=== PATIENT | male | born 1945 | race Caucasian/White ===

== ENCOUNTER 2016-07-13 14:51 | Day surgery (SDC) | payer MEDICARE, OTHER ==
[~2016-07-13] VITALS: Ht 180.3 cm; Wt 78.9 kg
[~2016-07-13 14:51] MED LIST: ADV250INH IH; ALBU8.5H2 INHALATION; ASPI-973 PO; CALC-682 PO; CARV3.122 PO; CEPH500C PO; DIGO125T73 PO; DIPH25CA6 PO; FAMO20T PO; FUR20 PO; LISI-610 PO; Lactated Ringer's 1,000 ML IV ONE; MONT10TA23 PO; MULT-1073 PO; NAPR220C11 PO; POTA10CA42 PO; PRE20 PO; SIMV10TA4 PO
[2016-07-13] MEDS ORDERED: Propofol 10,000 mCg/mL 20 mL Inj ONE (14:52)
[2016-07-13 15:26] VITALS: BP 148/82; PULSE 68; RESP 17; O2SAT 99
[2016-07-13] MEDS ORDERED: ADV250INH IH (15:31)
[2016-07-13] MEDS ORDERED: Lactated Ringer's 1,000 ML IV SCH (16:46)
--- NOTE | 2016-07-13 16:46 | PCM.HPANE ---
Patient Data Surgeon Admitting Provider: Attending Provider:Tri Lord MD Primary Care Physician:Fracisco Handley MD Other Provider:Mirta Reillyingham Anesthesia Reason for Visit Screening Ht/WT & BMI Height (Feet): 5 Height (Inches): 11 Weight (Kilograms): 78.93 Body Mass Index 24.00 Allergies Coded Allergies: iodine (Verified Allergy, Severe, Anaphylaxis, 07/13/16) shellfish derived (Verified Allergy, Severe, Anaphylaxis, 07/13/16) anaphylaxis Past Anesthesia History Anesthesia History: Denies:: Abnormal Airway, Anesthesia Reactions, Difficult Intubation, Fam Anesthesia Reaction, Fam Malignant Hypertherm, Malignant Hyperthermia Diabetes History Hx Diabetes?: No MRSA MRSA: No Medications Blood Thinner: Aspirin Last Dose Blood Thinner: Jul 12, 2016 Home Meds Incl Beta Jacob: Yes Date Beta Jacob Taken: Jul 13, 2016 Time Beta Jacob Taken: 0700 Active Scripts Lisinopril (Zestril)10 Mg Tablet5 Mg PO DAILY #30 TABLET Prov:Gisella Fulton MD 12/08/15 Reported Medications Fluticasone/Salmeterol (Advair 250-50 Diskus)60 Puff/Inh Disk1 Puff IH BID #1 DISK Ref 0 07/13/16 Carvedilol 3.125 Mg Tablet3.125 Mg PO BID Ref 0 01/28/16 Digoxin 125 Mcg Gmmiyq002 Mcg PO DAILY #30 TABLET Ref 0 01/28/16 Simvastatin 10 Mg Mzoucw28 Mg PO HS Ref 0 10/27/15 Montelukast 10 Mg Dudwon47 Mg PO HS Ref 0 10/27/15 Furosemide 20 Mg Tab20 Mg PO DAILY 30 Days Ref 0 10/27/15 Calcium Crb&Cit/D3/Min34/Dayanna (Citracal + Bone Density Tablet)1 Each Tablet1 Each PO BID 10/27/15 Multivits-Min/FA/Lycopene/Lut (Centrum Silver Tablet)1 Each Tablet1 Each PO DAILY 10/27/15 Aspirin 81 Mg Kiadwp36 Mg PO DAILY Ref 0 10/27/15 Naproxen Sodium (Aleve)220 Mg Zhjbezb597 Mg PO Q12 PRN For Pain 10/27/15 Albuterol HFA (Proair HFA)8.5 Gm Hfa.aer.ad2 Puffs INHALATION Q4H PRN For Shortness of Breath #1 INHALER 10/27/15 Fluticasone/Salmeterol (Advair 250-50 Diskus)60 Puff/Inh Disk1 Puff IH BID #1 DISK Ref 0 10/27/15 Discontinued Reported Medications diphenhydrAMINE HCl (Benadryl)25 Mg Xlqziey86 Mg PO BID PRN Ref 0 01/28/16 Prednisone (PredniSONE)20 Mg Jpuotl40 Mg PO DAILY Ref 0 01/28/16 Famotidine (Pepcid)20 Mg Nfizcw44 Mg PO BID 01/28/16 Potassium Chloride 10 Meq Capsule.er10 Meq PO DAILY 30 Days Ref 0 TAKE WITH FOOD 10/27/15 Discontinued Scripts Cephalexin 500 Mg Coqxfjq286 Mg PO DAILY #7 CAPSULE Prov:Patrick Aguirre PA-C 01/29/16 History History of ENT Problems?: Yes HEENT History: Positive for:: Cataracts (mild ) Hearing Problem Denies:: Abnormal Airway Difficult Intubation Dysphagia Sinus Problem Hx of Heart Problems?: Yes Cardiovascular History: Positive for:: AICD Atrial Fibrillation Cardiac Surgery (Heart cath 10/20) Congestive Heart Failure Heart Murmur Hypertension Irregular Heartbeat Pacemaker Denies:: Chest Pain Edema Thrombophlebitis Valvular Heart Disease Hx of Respiratory Problem?: Yes Respiratory History: Positive for:: Asthma COPD Dyspnea Denies:: Chest Surgery Cough Emphysema Hemoptysis Pneumonia Tuberculosis Hx Neurologic Problems?: No Neurological History: Positive for:: Dizziness Denies:: Alzheimer's Disease CVA Headaches Parkinson's Disease Seizures Hx of GI Problems?: Yes Gastrointestinal History: Denies:: Cirrhosis Diverticulitis Gall Bladder Disease Gastroesphageal Reflux Gastrointestinal Bleeding Heartburn Hepatitis Hiatal Hernia Liver Disease Rectal Bleeding Hx of Problems?: No Male Hx: Denies:: Prostate Problems Scrotal Mass Testicular Surgery Hx Musculoskeletal Problems?: No Musculoskeletal History: Positive for:: Back Injury (Low back pain) Denies:: Fibromyalgia Joint Replacement Musculoskeletal Trauma Hx of Psycho/Social Problems?: No Psycho Social History: Denies:: Anxiety Hx Depression Hx Surgeries?: Yes (PACEMAKER /DEFIB PLACEMENT CYST TONSILLECTOMY RONY FOOT SMALL BOWEL BLOCKAG) Hx Any Other Health Problems?: Yes Other History: Positive for:: Cancer (Basal/squamous cell carcinoma) Hospitalization (Bowel Obstruction ([facility])) Denies:: Thyroid Disease History Blood Transfusions: Denies:: Blood Transfuse Reaction Blood Transfusions Hx Diabetes: No Hx Alcohol Use: Yes (OCCATIONA)Hx Substance Use: No Smoking Status: Former Smoker Have You Smoked inLast 12 mo: No Stop/Bang Treated for Sleep Apnea?: Yes Do You Have a CPAP Machine?: Yes AUGUSTUS Risk Assessment: High Risk, =/>3 Yes Risk Assessment Category Category 1A: Patient has history of documented sleep apnea, and HAS NOT received any narcotic, sedative or anesthesia administration during this stay. Category 1B: Patient has history of documented sleep apnea, and HAS received any narcotic , sedative or anesthesia administration during this stay Category 2: Patient has SUSPECTED Obstructive Sleep Apnea, and HAS received any narcotic , sedative or anesthesia administration during this stay. Category 3: Patient has SUSPECTED Obstructive Sleep Apnea and HAS NOT received narcotic, sedative or anesthesia administration during this stay. Category 4: Outpatient in Procedural Areas with known sleep apnea or who screen positive for High Risk via the STOP/BANG questionnaire. Exam Exam Vital Signs Vital Signs Date Time Temp Pulse Resp B/P Pulse Ox O2 Delivery O2 Flow Rate FiO2 07/13/16 15:26 36.9 68 17 148/82 99 Room Air General Appearance: Oriented X3 HEENT/AIRWAY: MP 2 Lungs: Normal Air Movement Heart: Regular Rate/Rhythm Meds/Labs/Diagnostics Admission Meds Current Medications Lactated Ringer's (Lr) 1,000 ml @ 10 mls/hr Q24H ONCE IV Last administered on 07/13/16t 16:37; Start 07/13/16 at 06:00; Stop 07/14/16 at 05:59 Plan Impression Patient chart reviewed, patient interviewed and anesthestic plan with risks, benefits, and alternatives discussed, and informed consent obtained. ASA Physical Status: ASA4 Life Threatening Anesthetic Plan: MAC Bene/Risks/Altern/Consents: Yes HP Complete Prior to Induction: Yes John Bojorquez MD Jul 13, 2016 16:46
[2016-07-13] MEDS ORDERED: Ondansetron 2 mg/mL 2 mL Inj IVPUSH PRN (16:50)
[2016-07-13] MEDS ORDERED: MetoCLOpramide 5 mg/mL 2 mL Inj IVPUSH PRN (16:50)
[2016-07-13 17:36] VITALS: BP 134/80; PULSE 68; RESP 9; O2SAT 97
[2016-07-13 17:43] VITALS: BP 134/77; PULSE 67; RESP 10; O2SAT 97
[2016-07-13 17:53] VITALS: BP 145/81; PULSE 67; RESP 14; O2SAT 99
--- NOTE | 2016-07-13 22:56 | ENDO ---
[address] [address] ENDOSCOPY PROCEDURE PATIENT: DEIDRE CARRASCO : 1945 MR#: [id number] ADMIT: 07/13/2016 JOB ID: [id number] PROCEDURE: Colonoscopy. INDICATION: Screening. Patient's ASA classification, Mallampati score, and medications as per Dr. John Bojorquez's anesthesia report. INSTRUMENT USED: PCF H 180 AL. PREPARATION QUALITY: Fair. PROCEDURE DETAIL: After informed consent was obtained, the patient was brought to the GI suite, where he was placed on oxygen via nasal cannula and monitored with continuous pulse oximeter, telemetry, and blood pressure monitoring. A time-out was performed and then he was placed in a left lateral decubitus position and medications were administered for sedation. Digital rectal exam was performed which was unremarkable. The colonoscope was then inserted into the rectum and advanced under direct visualization to the cecum, which was identified by the presence of the ileocecal valve and appendiceal orifice. The procedure was quite difficult as the patient's colon was quite tortuous and redundant. Once the cecum was reached, the colonoscope was withdrawn back into the rectum and mucosa and lumen were examined. In the rectum, retroflexion was performed. Following retroflexion, remaining air in the rectum was suctioned, and procedure was completed. FINDINGS: 1. In the ascending colon, there was an approximately 3 cm lobulated mass that was firm. The lesion encompassed approximately 1/3 of a fold. The lesion was not obstructing. Multiple biopsies were obtained. 2. Alice ink was injected just distal to the mass. IMPRESSION: Ascending colon mass. RECOMMENDATIONS: 1. Await biopsy results. Pending biopsy results, may need cross-sectional imaging for staging. 2. Surgery consultation. COMPLICATIONS: None. ESTIMATED BLOOD LOSS: Less than 5 mL.
--- NOTE | 2016-07-14 07:38 | PCM.ANEP1 ---
Post Anesthesia Phase 1 PACU Phase 1 Assessment Anesthetic Administered: MAC Level of Alertness: Awake, talking Pain: No Nausea or Vomiting: No Oxygen Delivery: Room Air Lungs: Normal Air Movement John Bojorquez MD Jul 14, 2016 07:38
--- NOTE | 2016-07-14 07:38 | PCM.ANEP2 ---
Post Anesthesia Evaluation ASA/CMS Post Anesthesia VS in Patient's Normal Range?: Yes Resp Stable; Airway Patent?: Yes CV Function & Hydration Stable: Yes Mental Status Recovered?: Yes Pain control Satisfactory?: Yes N/V Control Satisfactory?: Yes John Bojorquez MD Jul 14, 2016 07:38
--- NOTE | 2016-07-19 11:24 | PATH ---
SURGICAL PATHOLOGY Attending Physician:Lucas David CASE STATUS: Signed Out PATIENT NAME: DEIDRE CARRASCO PID: [id number] : 1945 DATE COLLECTED:07/13/2016 00:00 SPECIMEN: Colon, Biopsy CLINICAL HISTORY: COLON MASS 1). ASCENDING COLON MASS BIOPSY FINAL DIAGNOSIS: 1.ASCENDING COLON MASS, BIOPSY: FRAGMENTS OF COLON MUCOSA WITH CHANGES SUGGESTIVE OF CHRONIC ISCHEMIA. Negative for evidence of neoplasm. ICD10 code K55.9 NOTE: As part of a routine customer quality specialist, Dr. Julius Hoskins has also reviewed this case and agrees with the diagnosis. GROSS DESCRIPTION: Received in formalin, labeled with the patient' s name and "ascending colon mass BX", are multiple fragments of neff, soft tissue ranging in size from less than 0.1 cm by less than 0.1 cm by less than 0.1 cm to 0.2 x 0.2 x 0.1 cm. All fragments are totally submitted in one cassette. ([id number]) MICRO DESCRIPTION: Sections are of multiple fragments of colon mucosa with some submucosa. The main change is seen in a few fragments where there is crypt dropout with mucosal fibrosis suggestive of ischemic change. Some neovascularization in the submucosa is also noted. There is no evidence of neoplasm. ICD-9 CODES: CPT CODES: 1: 94991 Electronically Signed Out Dwayne Chaudhary MD [facility] Pathology [facility] [address], [place] [address] Technical component performed at [facility], [address] [place] [address] Ave[address], [place], [address]
== END 2016-07-13 23:59 | disposition home or self-care (01) ==
LOC: END 14:51
PROVIDERS: ATTEND Internal Medicine Gastroenterology
DX: Z12.11 Encounter for screening for malignant neoplasm of colon (principal); Z86.010 Personal history of colon polyps; K55.1 Chronic vascular disorders of intestine; I50.9 Heart failure, unspecified; I48.91 Unspecified atrial fibrillation; I10 Essential (primary) hypertension; E78.5 Hyperlipidemia, unspecified; I45.10 Unspecified right bundle-branch block; J45.909 Unspecified asthma, uncomplicated; G47.33 Obstructive sleep apnea (adult) (pediatric); J44.9 Chronic obstructive pulmonary disease, unspecified; Z87.891 Personal history of nicotine dependence; Z85.828 Personal history of other malignant neoplasm of skin; Z79.82 Long term (current) use of aspirin; Z95.0 Presence of cardiac pacemaker
CPT/HCPCS: 45380; 45381; 88305; J7120